=== PATIENT | male | born 1960 | race Asian ===

== ENCOUNTER 2025-09-30 10:49 | Day surgery (SDC) | payer MEDICARE ==
[~2025-09-30] VITALS: Ht 165.1 cm; Wt 59.0 kg
[~2025-09-30 10:49] MED LIST: B-12100010 PO; CALC600C3 PO; GABA-1172 PO; METF10004 PO; ONDA-282 PO; PANT20TA6 PO; VENL150C43 PO
[2025-09-30] MEDS ORDERED: LIDOCAINE 2% 100 MG/5 ML SDV (FOR ANES.) As Ordered ONE (11:56)
[2025-09-30 12:11] VITALS: TEMP 97.2
[2025-09-30 12:29] VITALS: BP 119/73; O2SAT 98
== END 2025-09-30 12:41 | disposition home or self-care (01) ==
LOC: M OPP 10:49
PROVIDERS: ATTEND Internal Medicine Gastroenterology
DX: Z12.11 Encounter for screening for malignant neoplasm of colon (principal); K64.0 First degree hemorrhoids; K22.89 Other specified disease of esophagus; K22.70 Barrett's esophagus without dysplasia; K44.9 Diaphragmatic hernia without obstruction or gangrene; R12 Heartburn; G47.30 Sleep apnea, unspecified; Z88.6 Allergy status to analgesic agent; Z79.84 Long term (current) use of oral hypoglycemic drugs; Z79.899 Other long term (current) drug therapy
CPT/HCPCS: 43239; 88305; G0121